=== PATIENT | male | born 2000 | race African-American/Black ===

== ENCOUNTER 2025-03-07 20:53 | Inpatient (IN) | payer OTHER ==
[~2025-03-07] VITALS: Ht 175.3 cm; Wt 108.4 kg
[2025-03-07 21:05] VITALS: O2SAT 99
[2025-03-07] MEDS: IBUPROFEN 600MG TABLET PO ONE (21:30)
[2025-03-07] MEDS: SODIUM CHLORIDE 0.9% 1,000 ML IV ONE (23:06)
[2025-03-07] MEDS: ONDANSETRON HCL 4MG/2ML INJ IV ONE (23:06)
[2025-03-08] VITALS (72 sets, daily range): BP systolic 105–156; BP diastolic 53–141; PULSE 78–110; RESP 11–33; TEMP 36.9–37.1; O2SAT 97–100
[2025-03-08 00:40] LABS: HEMATOCRIT. 43.1 % (42.0-52.0); HEMOGLOBIN. 14.3 g/dL (14.0-18.0); MEAN PLATELET VOLUME 7.3 fl (7.4-10.4); PLATELET 195 x1000/uL (130-400); RED BLOOD CELL COUNT 4.90 mill/uL (4.7-6.1); RED CELL DISTRIBUTION WIDTH 13.6 % (11.6-14.6)
[2025-03-08 00:55] LABS: CREATININE 1.3 mg/dL (0.6-1.3); UREA NITROGEN BLOOD 8 mg/dL (9-23)
[2025-03-08 00:57] LABS: ASPARTATE AMINOTRANSFERASE 68 IU/L (<34); BILIRUBIN DIRECT 0.2 mg/dL (<=3.0); BILIRUBIN TOTAL 0.8 mg/dL (0.1-1.0)
[2025-03-08 00:58] LABS: PROTEIN TOTAL 7.0 g/dL (6.0-8.3)
[2025-03-08 01:04] LABS: BAND% 4.0 % (1.0-6.0); LYMPHOCYTES % MANUAL 5.0 % (20.0-50.0); MONOCYTES % MANUAL 8.0 % (2.0-8.0); NEUTROPHILS % MANUAL 83.0 % (45.0-75.0); PLATELET ESTIMATE NORMAL
[2025-03-08] MEDS ORDERED: MORPHINE SULFATE 2 MG/ML INJ (NOT FOR IM USE) IV ONE (01:30)
[2025-03-08] MEDS: MORPHINE SULFATE 4 MG/ML INJ (FOR IV/IM USE) IV SCH (01:53)
[2025-03-08] MEDS: IOHEXOL-300 100 ML BOTTLE ONE (02:47)
[2025-03-08] MEDS: ONDANSETRON HCL 4MG/2ML INJ IV ONE (02:53)
[2025-03-08] MEDS: MORPHINE SULFATE 4 MG/ML INJ (FOR IV/IM USE) IV ONE (02:53)
[2025-03-08] MEDS ORDERED: IPRATROPIUM/ALBUTEROL 0.5-3(2.5)MG/3ML NEB HHN PRN (07:45)
[2025-03-08] MEDS ORDERED: DEXTROSE 50% WATER 50ML SYRINGE IV PRN (07:45)
[2025-03-08] MEDS ORDERED: ONDANSETRON HCL 4MG/2ML INJ IV PRN (07:45)
[2025-03-08] MEDS: PANTOPRAZOLE SODIUM 40 MG/VIAL IV SCH (08:01)
[2025-03-08] MEDS: DEXT 5%/0.9% NACL 1,000 ML IV SCH (08:01)
[2025-03-08] MEDS: BLOOD SUGAR DIAGNOSTIC STRIP TEST SCH (08:10)
[2025-03-08 09:10] LABS: BASOPHILS % 0.1 % (0.0-2.0); EOSINOPHILS % 0.0 % (0.0-5.0); HEMATOCRIT. 39.0 % (42.0-52.0); HEMOGLOBIN. 12.8 g/dL (14.0-18.0); LYMPHOCYTES % 8.2 % (20.0-50.0); MEAN PLATELET VOLUME 7.5 fl (7.4-10.4); MONOCYTES % 5.5 % (2.0-8.0); NEUTROPHILS % 86.2 % (40.0-76.0); PLATELET 205 x1000/uL (130-400); RED BLOOD CELL COUNT 4.42 mill/uL (4.7-6.1); RED CELL DISTRIBUTION WIDTH 14.0 % (11.6-14.6)
[2025-03-08 09:20] LABS: INR 1.1
[2025-03-08 09:39] LABS: CREATININE 1.2 mg/dL (0.6-1.3)
[2025-03-08 09:40] LABS: TRIGLYCERIDE 51 mg/dL (0-150); UREA NITROGEN BLOOD 8 mg/dL (9-23)
[2025-03-08 09:41] LABS: LDL CHOLESTEROL 111 mg/dL (5-100)
[2025-03-08 09:42] LABS: PHOSPHORUS 3.6 mg/dL (2.5-4.9)
[2025-03-08 09:44] LABS: T4 FREE 1.04 ng/dL (0.89-1.76)
[2025-03-08 10:18] LABS: HEPATITIS C AB NON REACTIVE (Neg) (Negative)
[2025-03-08] MEDS: ACETAMINOPHEN 1000MG/100ML 100 ML IV PRN (10:23)
[2025-03-08] MEDS: MAGNESIUM 4 G PREMIX 100 ML IV SCH (12:14)
[2025-03-08 15:46] LABS: TROPONIN I HIGH SENSITIVITY 4 ng/L (3.0-53)
[2025-03-08 18:20] LABS: CLARITY URINE CLEAR (CLEAR); COLOR URINE YELLOW (YELLOW); GLUCOSE URINE NEGATIVE (NEGATIVE); KETONES URINE NEGATIVE (NEGATIVE); LEUKOCYTE ESTERASE URINE NEGATIVE (NEGATIVE); NITRITE URINE NEGATIVE (NEGATIVE); OCCULT BLOOD URINE NEGATIVE (NEGATIVE); PH URINE 6.0 (4.5-8.0); PROTEIN URINE TRACE (NEGATIVE); SPECIFIC GRAVITY URINE 1.040 (1.005-1.030); UROBILINOGEN URINE 0.2 E.U./dL (0.2-1.0)
[2025-03-08 18:44] LABS: RBC URINE NONE SEEN /hpf (0-2); SQUAMOUS EPITHELIAL CELL URINE NONE SEEN /lpf (RARE/1+); WBC URINE NONE SEEN /hpf (0-2)
[2025-03-08 18:45] LABS: BACTERIA URINE NONE SEEN
[2025-03-08 18:52] LABS: *AMPHETAMINES SCREEN URINE NEGATIVE (NEGATIVE); *BARBITURATES SCREEN URINE NEGATIVE (NEGATIVE); *BENZODIAZEPINES SCREEN URINE NEGATIVE (NEGATIVE); *COCAINE SCREEN URINE NEGATIVE (NEGATIVE)
[2025-03-08 18:53] LABS: CANNABINOID URINE SCREEN NEGATIVE (NEGATIVE); ECSTASY MDMA SCREEN URINE NEGATIVE (NEGATIVE); METHADONE URINE SCREEN NEGATIVE (NEGATIVE); OPIATES URINE SCREEN PRESUMPTIVE POSITIVE (NEGATIVE); PHENCYCLIDINE URINE SCREEN NEGATIVE (NEGATIVE)
[2025-03-08] MEDS ORDERED: MORPHINE SULFATE 4 MG/ML INJ (FOR IV/IM USE) IV PRN (20:15)
[2025-03-08] MEDS ORDERED: NALOXONE HCL 0.4MG/ML VIAL IV PRN (20:45)
[2025-03-09] VITALS (57 sets, daily range): BP systolic 97–148; BP diastolic 54–99; PULSE 72–99; RESP 10–28; TEMP 36.7–37.3; O2SAT 95–100
[2025-03-09 00:22] LABS: TROPONIN I HIGH SENSITIVITY 6 ng/L (3.0-53)
[2025-03-09 06:23] LABS: CREATININE 1.0 mg/dL (0.6-1.3); UREA NITROGEN BLOOD 5 mg/dL (9-23)
[2025-03-09 06:25] LABS: ASPARTATE AMINOTRANSFERASE 35 IU/L (<34); BILIRUBIN DIRECT 0.3 mg/dL (<=3.0); BILIRUBIN TOTAL 1.0 mg/dL (0.1-1.0); PROTEIN TOTAL 6.1 g/dL (6.0-8.3)
[2025-03-09 06:33] LABS: BASOPHILS % 0.2 % (0.0-2.0); EOSINOPHILS % 1.1 % (0.0-5.0); HEMATOCRIT. 33.9 % (42.0-52.0); HEMOGLOBIN. 11.4 g/dL (14.0-18.0); LYMPHOCYTES % 27.9 % (20.0-50.0); MEAN PLATELET VOLUME 7.5 fl (7.4-10.4); MONOCYTES % 11.8 % (2.0-8.0); NEUTROPHILS % 59.0 % (40.0-76.0); PLATELET 159 x1000/uL (130-400); RED BLOOD CELL COUNT 3.87 mill/uL (4.7-6.1); RED CELL DISTRIBUTION WIDTH 13.8 % (11.6-14.6)
[2025-03-09] MEDS ORDERED: ACETAMINOPHEN 325MG TABLET PO PRN (06:45)
[2025-03-10] VITALS: BP 128/60; PULSE 97; RESP 20; TEMP 36.4; O2SAT 97
[2025-03-10 07:00] VITALS: BP 131/69; PULSE 85; RESP 20; TEMP 36.6; O2SAT 98
[2025-03-10] MEDS: ACETAMINOPHEN 325MG TABLET PO PRN (10:31)
[2025-03-10 12:00] VITALS: BP 103/49; PULSE 80; RESP 18; TEMP 35.9; O2SAT 99
[2025-03-10 16:00] VITALS: BP 117/82; PULSE 87; RESP 18; TEMP 35.7; O2SAT 98
[2025-03-10 20:17] VITALS: BP 137/77; PULSE 88; RESP 20; TEMP 37.1; O2SAT 100
[2025-03-11] VITALS: BP 112/60; PULSE 70; RESP 20; TEMP 36.1; O2SAT 100
[2025-03-11 04:00] VITALS: BP 109/60; PULSE 72; RESP 18; TEMP 36.6; O2SAT 100
[2025-03-11 08:00] VITALS: BP 112/68; PULSE 70; RESP 18; TEMP 36.2; O2SAT 97
[2025-03-11 08:00] LABS: CREATININE 1.0 mg/dL (0.6-1.3)
[2025-03-11 08:02] LABS: UREA NITROGEN BLOOD 8 mg/dL (9-23)
[2025-03-11 08:07] LABS: PLATELET 178 x1000/uL (130-400); RED BLOOD CELL COUNT 4.02 mill/uL (4.7-6.1); RED CELL DISTRIBUTION WIDTH 13.1 % (11.6-14.6)
[2025-03-11 12:00] VITALS: BP 119/59; PULSE 65; RESP 18; O2SAT 99
[2025-03-11] MEDS: POLYETHYLENE GLYCOL 3350 (17GM) 1 DOSE PACK PO NR (12:31)
[2025-03-11 13:58] VITALS: BP 119/59; PULSE 65; RESP 18; TEMP 97
== END 2025-03-11 15:13 | disposition home or self-care (01) | DRG 914 ==
LOC: ER 20:53 → CVICU 03-08 02:36 → EDBEDREQSVC 03-08 02:40 → EDBEDREQ 03-08 02:40 → EDBEDREQTM 03-08 02:40 → ENRESERV 03-08 06:26 → 8WST 03-09 17:45
PROVIDERS: ADMIT Internal Medicine; ATTEND Internal Medicine
DX: S36.898A Other injury of other intra-abdominal organs, initial encounter (principal); D62 Acute posthemorrhagic anemia; R55 Syncope and collapse; D72.829 Elevated white blood cell count, unspecified; Z79.899 Other long term (current) drug therapy; V43.52XA Car driver injured in collision with other type car in traffic accident, initial encounter; Y93.89 Activity, other specified; Y92.89 Other specified places as the place of occurrence of the external cause; Y99.8 Other external cause status
CPT/HCPCS: 80076; 80048; 85025; 36415; 73560; 74018; 96361; 96374; 96375; 99291; J2405; J7030; 74177; 80061; 80305; 81003; 82962; 83036; 83735; 83880; 84100; 84439; 84443; 84484; 85014; 85018; 85027; 86705; 86850; 86900; 87340; 93005; 93970; A4606; J2270; J2470; J3475; J7042; Q9967; J0131